=== PATIENT | female | born 1985 | race Caucasian/White ===

== ENCOUNTER 2018-11-30 23:33 | Emergency (ER) | payer OTHER ==
[~2018-11-30] VITALS: Ht 157.5 cm; Wt 98.0 kg
[2018-11-30 23:44] VITALS: Ht 157.5 cm; Wt 98.0 kg
[2018-12-01 00:55] VITALS: BP 131/66
== END 2018-12-01 00:55 | disposition home or self-care (01) ==
LOC: ED 23:33
DX: J18.9 Pneumonia, unspecified organism (principal); J45.909 Unspecified asthma, uncomplicated; E05.90 Thyrotoxicosis, unspecified without thyrotoxic crisis or storm; F41.9 Anxiety disorder, unspecified
CPT/HCPCS: J2930; J7620

== ENCOUNTER 2019-07-09 11:01 | Inpatient (IN) | payer OTHER ==
[~2019-07-09] VITALS: Ht 157.5 cm; Wt 97.3 kg
[2019-07-09 11:16] VITALS: Ht 157.5 cm; Wt 97.3 kg
--- NOTE | 2019-07-09 11:40 | NUR ---
PT CAME TO THE ED TODAY WITH CO RLQ PAIN SINCE YESTERDAY. PT DENIES ANY N/V/D. PT STATES YESTERDAY IT WAS HER ENTIRE ABD AND TODAY IS JUST RLQ. PT STATES PAIN FEELS LIKE ITS TWISTING AND IS 7/10. PT STATES " CAN YOU CHECK FOR STD'S BECAUSE I HAVE BEEN HAVING UNPROTECTED SEX." PT IS AWAKE AND ALERT. DENIES ANY URINARY SYMPTOMS. PT SITTING ON GURNEY WITH NAD. WILL CONTINUE TOMONITOR.
[2019-07-09 12:03] LABS: CALCIUM 8.3 mg/dL (8.5-10.1); CHLORIDE SERUM 103 mmol/L (98-107); CREATININE SERUM 0.9 mg/dL (0.6-1.0); GFR1 > 60 mL/min; GLUCOSE SERUM 115 mg/dL (74-106); POTASSIUM SERUM 3.7 mmol/L (3.5-5.1); SODIUM SERUM 138 mmol/L (136-145)
[2019-07-09 12:14] LABS: PLATELET COUNT 272 x10^3mcL (130-400)
[2019-07-09 12:17] LABS: ALKALINE PHOSPHATASE 65 U/L (46-116); ALT/SGPT 25 U/L (14-59); AST/SGOT 12 U/L (15-37); BILIRUBIN TOTAL 0.7 mg/dL (0.20-1.00); TOTAL PROTEIN, SERUM 7.6 g/dL (6.4-8.2)
[2019-07-09 12:20] LABS: RED CELL DISTRIBUTION WIDTH 19.1 % (11.5-14.5)
[2019-07-09 12:37] LABS: UA SPECIFIC GRAVITY 1.015 (1.005-1.035); microscopic required? YES; urine erythrocyte NEGATIVE (NEGATIVE)
[2019-07-09] MEDS ORDERED: LEVOTHYROXIN0.025 M2 PO (13:02)
[2019-07-09] MEDS ORDERED: LEXAPRO10 MG PO (13:02)
[2019-07-09 13:06] LABS: BAND NEUTROPHIL 20 % (0-10); BASOPHIL 0 % (0-2); MONOCYTE 4 % (0-7); SEGMENTED NEUTROPHILS 67 % (37-75)
[2019-07-09 13:08] LABS: rbc morphology (normal/abnorm) NORMAL (NORMAL)
[2019-07-09 13:36] LABS: AMPHETAMINE QUAL UR NONE DETECTED (See below)
--- NOTE | 2019-07-09 13:43 | NUR ---
REPORT GIVEN TO DIXIE GOLDMAN ON MS FOR FURTHER CARE OF PT AFTER SURGERY
[2019-07-09 16:16] VITALS: BP 114/63
--- NOTE | 2019-07-09 16:26 | NUR ---
RECEIVED FROM PACU, TRANSPORTED VIA [facility]. S/P LAPARASCOPIC APPENDECTOMY WITH SMALL SURGICAL SUTURE SITES COVERED WITH DERMABOND X 3 SITES TO ABDOMEN. HYPOACTIVE BOWEL SOUNDS. STATED HAVING 7/10 SHARP PAIN TO SURGICAL SITE. ABLE TO TRANSFER FROM [facility] TO BED BY SELF. BREATHING EVEN AND UNLABORED ON 2LPM OF O2 VIA NC. LUNG SOUNDS CLEAR. SALINE LOCK TO RIGHT FOREARM, INTACT. SCDS TO BLE. HOB ELEVATED 30 DEG. INSTRUCTED ON USE OF CALL LIGHT TO CALL FOR ASSISTANCE, PLACED WITHIN EASY REACH. ENDORSED TO NURSE CABRERA
--- NOTE | 2019-07-09 16:34 | NUR ---
PATIENT ADMITTED FROM SURGERY, BROUGHT UP BY [facility] ACCOMPANIED BY 2 STAFF MEMBERS. PATIENT ABLE TO TRANSFER TO BED FROM [facility]. A/O X4, SOMULENT, S/P LAP APPY. PATIENT COMPLAINING OF PAIN TO RIGHT LOWER ABD WHEN TRANSFERING, BUT WISHING TO REST AT THIS TIME. CURRENTLY ON 2LPM NC FROM POST OP. M/S PATIENT. LUNG SOUNDS CTA, BOWEL SOUNDS HYPOACTIVE. CURRENTLY NPO. X3 INCISION TO ABD SUTURES AND DERMABOND. STARTED NS TO RIGHT FOREARM AT 100MLS/H. PATIENT SLIGHTLY WARM TO TOUCH, TEMP 99.2 TE. WILL CONTINUE TO MONITOR. CALL LIGHT PLACED WITHIN REACH, FAMILY MEMBER AR BEDSIDE
[2019-07-09 20:00] VITALS: BP 97/55
--- NOTE | 2019-07-09 20:00 | NUR ---
PATIENT RECEIVED IN BED EARLIER DURING BEDSIDE HANDS OFF SLEEPING EASILY AWAKEN WHEN NAME CALLED, APPEARED DROWSY BUT AROUSABLE VERBALLY, TO BE ABLE TO RESPOND AND ANSWER QUESTIONS APPROPRIATELY, SPEECH CLEAR. , S/SP LAP/APPY TODAY, X3 ABDOMINAL SURGICAL INCISION DERMABOND, NO BLEEDING AT SITE, COMPLAINED OF PAIN AND WILL MEDICATE PRN, ABDOMEN TENDER TO [facility], HYPOACTIVE BS, DENIED PASSING GAS NOR BURPING.NO URGE TO VOID YET INFORMED TO CALL NURSE WHEN NECESSITIES CALLS, BLADDER NON DISTENDED. IV SITE NO SIGN OF INFILTRATION. APPLIED SCD'S TO BLE AND INFORMED ABOUT ITS PURPOSE AND IMPORTANCE BEING FOR DVT PROPHYLAXIS. SAFETY PRECAUTIONS MAINTAINED. PATIENT INFORMED ABOUT PAIN MANAGEMENT. WILL CONTINUE TO MONITOR.
--- NOTE | 2019-07-09 20:59 | NUR ---
PATIENT COMPLAINED OF POSTSURGICAL INCISIONAL ABDOMINAL PAIN, MEDICATED PRN, MADE CCOJMFORTABL IN BED.. WILL CHECK EFFECTIVENESS.
--- NOTE | 2019-07-09 21:52 | NUR ---
CHECKED EFFECTIVENESS OF PAIN MEDS GIVEN ,PATIENT STATED PAIN IS SLWOLY SUBSIDING. COMFORTABLE THIS TIME. WILL CONTINUE TO MONITOR.
--- NOTE | 2019-07-09 23:00 | NUR ---
PATIENT WAS ASSISTED OOB TO THE BATHROOPM TO VOID, SLOW STEADY GAIT, VOIDED ARIK UA. ASSISTED BACK IN BED.
--- NOTE | 2019-07-10 00:49 | NUR ---
CALLED AND COMPLAINED OF ABDOMINAL SURGICAL INCISIONAL PAIN, RATED ATB 7/10, MEDICATED PRN, MADE COMFORTABLE IN BED. WILL MONITOR. EFFECTIVENESS.
--- NOTE | 2019-07-10 01:45 | NUR ---
PATIENT CHECKED THIS TIME, SLEEPING BUT EASILY AWAKEN VERBALLY,CLAIMED PAIN IS BETTER AT 2/10. WILL CONTINUE TO MONITOR.
--- NOTE | 2019-07-10 05:24 | NUR ---
COMPLAINED OF ABDOMINAL SURGICAL INCISION PAIN RATED AT 7/10, MEDICATED PRN AND MADE COMFORTABLE IN BED. WILL CHECK EFFECTIVENESS.
[2019-07-10 05:41] VITALS: BP 93/50
--- NOTE | 2019-07-10 06:15 | NUR ---
PATIENT HAD A RESTFUL AND QUIET NIGHT, WAS MEDICATED PRN FOR COMPLAINT OF PAIN. PATIENT VOIDED WITHOUT DIFF. AMBULATED TO THE BR WITH STEADY GAIT. DENIED PASSING GAS NOR BURPING. ENCOURAGED TO INCREASE AMBULATION TODAY TOLERATED TO HELP EXPELL GAS. INCISION SITES NO BLEEDING. SAFETY PRECAUTIONS MAINTAINED. WILL ENDORSE CONTINUITY OF CARE TO INCOMING NURSE.
[2019-07-10 06:37] VITALS: BP 102/64
--- NOTE | 2019-07-10 06:38 | NUR ---
PATIENT SEEN AMBULATING IN THE HALLWAY.
[2019-07-10 06:39] LABS: BASOPHIL % 0.1 % (0-2); PLATELET COUNT 230 x10^3mcL (130-400)
--- NOTE | 2019-07-10 06:45 | NUR ---
PT REPORTS SOME RELIEF AFTER MED ADMINISTRATION. WILL CONT TO MONITOR.
[2019-07-10 06:50] LABS: RED CELL DISTRIBUTION WIDTH 19.2 % (11.5-14.5)
--- NOTE | 2019-07-10 06:50 | NUR ---
PATIENT CONTINUED TO AMBULATE IN THE HALLWAY, CLAIMED SHE BURPED ALREADY BUT NO GAS. WILL REPORT TO AM NURSE.
[2019-07-10 06:54] LABS: CARBON DIOXIDE 24.8 mmol/L (21-32); CHLORIDE SERUM 104 mmol/L (98-107); CREATININE SERUM 0.8 mg/dL (0.6-1.0); GFR1 > 60 mL/min; GLUCOSE SERUM 120 mg/dL (74-106); MAGNESIUM 1.7 mg/dL (1.8-2.4); PHOSPHOROUS 3.1 mg/dL (2.5-4.9); POTASSIUM SERUM 3.9 mmol/L (3.5-5.1); SODIUM SERUM 138 mmol/L (136-145)
--- NOTE | 2019-07-10 07:20 | NUR ---
RECEIVED PT FROM [employer]UDIES TUTOR. PT AWAKE, ALERT A/OX4. PT ON ROOM AIR WITH NO RESP DISTRESS NOTED. IV ACCESS RFA, CDI INFUSING NS AT 80ML/HR. PERIPHERAL PULSES PALPABLE, NO EDEMA NOTED. PT REFUSES SCD'S. PT AMBULATORY WITH GENERALIZED WEAKNESS NOTED. PT REPORTS +BURP, -GAS, ACTIVE BS NOTED. PT HAS 3 SURGICAL INCISIONS WITH DERMABOND, NO DRAINAGE NOTED. PT REPORTS ABDOMINAL PAIN, WILL MEDICATE PRN. SAFETY MEASURES IN PLACE, BED LOW AND LOCKED. CALL LIGHT WITHIN REACH.
--- NOTE | 2019-07-10 07:26 | NUR ---
BEDSIDE REPORT AND INTRODUCTION PERFORMED WITH INCOMING NURSE MADDISON.
[2019-07-10 07:37] VITALS: BP 90/45
--- NOTE | 2019-07-10 10:41 | NUR ---
PT COMPLAINING OF PAIN TO ABDOMEN ASKING FOR PAIN MED. NORCO ADMINISTERED ORDERED PRN (SEE EMAR). WILL MONITOR.
--- NOTE | 2019-07-10 12:00 | NUR ---
PT REPORTS SOME RELIEF AFTER ADMINISTRATION OF NORCO. PT REFUSES SCD'S, PT ABLE TO AMBULATE WITH NO ISSUES. PT STEADY ON FEET. WILL CONTINUE TO MONITOR.
--- NOTE | 2019-07-10 15:34 | NUR ---
PT REQUESTING PAIN MED FOR PAIN IN ABDOMEN 03/19 AND PAIN IN NECK 01/17. MED ADMINISTERED ORDERED PRN (SEE EMAR). WILL CONTINUE TO MONITOR. SAFETY MAINTAINED.
[2019-07-10 16:31] VITALS: BP 103/55
--- NOTE | 2019-07-10 19:01 | NUR ---
PT STABLE AT THIS TIME. WILL CONTINUE TO MONITOR AND ENDORSE CARE TO [employer]RIC[employer] ADVISORY TEACHER. SAFETY MAINTAINED.
[2019-07-10 19:50] VITALS: BP 107/54
--- NOTE | 2019-07-10 19:50 | NUR ---
BEDSIDE HANDS OFF RECEIVED FROM OUT GOING NURSE MADDISON PATIENT APPEARED COMFORTABLE, COMPLAINED OF POST SURGICAL ABDDOMINAL INCISIONAL PAIN RATED AT 5/10 WILL MONITOR AND CHECK PRN MEDS IF DUE, IV SITE NO SIGN OF INFILTRATION. PASSED GAS AND BURP PER AM NURSE, X3 ABDOMINAL INCISION DERMABOND, SITES NO BLEEDING. PATIENT INFORMED ABOUT POC THIS SHIFT. WILL CONTINUE TO MONITOR.
--- NOTE | 2019-07-10 20:25 | NUR ---
COMPLAINED OF ABDOMINAL SURGICAL INCISIONAL PAIN RATED AT 7-8/10 MEDICATED PRN, PATIENT ALSO WITH TEMP 100.0. COOLING MEASURES INITIATED, REMOVED EXCESS BLANKET AND APPLIED ICE PACK TO AXILLA AND FOREHEAD. WILL CHECK EFFECTIVENESS.
--- NOTE | 2019-07-10 21:49 | NUR ---
DR ELLIS MADE AWARE OF REJQ=453.7 ORALLY, PATIENT ENCOURAGED FLUIDS AND KEPT EXCESS BLANKET OFF AND COOLING MEASURES MAINTAINED. TYLENOL 650 MG GIVEN. WILL CONTINUE TO MONITOR/
--- NOTE | 2019-07-10 21:53 | NUR ---
MEDICATED WITH TYLENOL 650 MG PO FOR ELEVATED TEMP, COOLING MEASURES MAINTAINED.
--- NOTE | 2019-07-10 22:36 | NUR ---
PT C/O OF 04/18 PAIN STILL AFTER ADMINISTRATION OF NORCO. ADMINISTERED MORPHINE PER DEC. WILL REASSESS AND CONTINUE TO MONITOR.
--- NOTE | 2019-07-10 22:53 | NUR ---
RE-CHECKED TEMP DOWN THIS TIME, COMPLAINED OF SORE THROAT AND COUGHING PHEOLGM YELLOW PER PATIENT,WILL NOTIF DR ELLIS.
--- NOTE | 2019-07-10 22:58 | NUR ---
DR ELLIS INFORMED OF PATIENT COMPLAINT OF SORE THROAT AND COUGHING YELLOW PHLEGM.
--- NOTE | 2019-07-11 01:07 | NUR ---
INQUIRE FROM PATIENT IF DR ELLIS CAME TO SEE HER REGARDING COMPLAINT MADE EARLIER OF HER SORE THROAT, PATIENT STATED MD CAME.
--- NOTE | 2019-07-11 01:51 | NUR ---
PT IS ASLEEP BUT AROUSABLE WHEN SPOKEN TO. BREATHING IS EVEN AND UNLABORED. NO SIGNS OF RESP. DISTRESS. BED IN LOWEST POSTION. CALL LIGHT WITHIN REACH. WILL CONTINUE TO MONITOR.
--- NOTE | 2019-07-11 03:40 | NUR ---
PATIENT IS RETING COMFORTABLY THIS TIME NO DISTRESS. WILL CONTINUE TO MONITOR.
[2019-07-11 05:07] LABS: RAPID PLASMA REAGIN Non Reactive (Non Reactive)
[2019-07-11 05:48] VITALS: BP 125/67
[2019-07-11 06:12] LABS: BASOPHIL % 0.2 % (0-2); PLATELET COUNT 252 x10^3mcL (130-400)
[2019-07-11 06:24] LABS: CALCIUM 7.7 mg/dL (8.5-10.1); CARBON DIOXIDE 24.4 mmol/L (21-32); CHLORIDE SERUM 103 mmol/L (98-107); CREATININE SERUM 0.6 mg/dL (0.6-1.0); GFR1 > 60 mL/min; GLUCOSE SERUM 110 mg/dL (74-106); MAGNESIUM 1.7 mg/dL (1.8-2.4); PHOSPHOROUS 2.6 mg/dL (2.5-4.9); POTASSIUM SERUM 3.5 mmol/L (3.5-5.1); SODIUM SERUM 136 mmol/L (136-145)
[2019-07-11 06:55] LABS: RED CELL DISTRIBUTION WIDTH 19.4 % (11.5-14.5)
--- NOTE | 2019-07-11 07:10 | NUR ---
RECEIVED BEDSIDE REPORT FROM DIRECTOR HOUSEKEEPING NURSE AT THIS TIME. PATIENT RESTING COMFORTABLY IN BED. NO APPARENT DISTRESS OR DISCOMFORT NOTED. BREATHING EVEN AND UNLABORED. NO RESPIRATORY DISTRESS OR DISCOMFORT. PATIENT DENIES SHORTNESS OF BREATH. PATIENT DENIES CHEST PAIN/PRESSURE AT THIS TIME. S/P LAP APPY WITH X3 INCISION WITH DERMABOND, CDI. IV PATENT AND INTACT. ALL QUESTIONS AND CONCERNS ADDRESSED. ALL NEEDS ATTENDED TO. WILL CONTINUE TO MONITOR
--- NOTE | 2019-07-11 07:26 | NUR ---
PT SLEPT IN INTERVALS THROUGHOUT SHIFT WITH NO ACUTE EVENTS OVERNIGHT. COMFORT AND SAFETY MEASURES MAINTAINED. ALL NEEDS ASSESSED AND ATTENDED TO. ENDORSED CARE TO DAY SHIFT NURSE, OLI GOLDMAN.
[2019-07-11 09:20] VITALS: BP 113/68
--- NOTE | 2019-07-11 09:50 | NUR ---
PATIENT DOWN FOR CT SCAN AT THIS TIME.
--- NOTE | 2019-07-11 10:00 | NUR ---
ALL MORNING MEDICATION ADMINISTERED. PATIENT TOLERATED MEDICATIONS WELL. NO APPARENT ADVERSE EFFECTS NOTED. ALL NEEDS ATTENDED TO. WILL CONTINUE TO MONITOR
--- NOTE | 2019-07-11 10:15 | NUR ---
PATIENT BACK FROM CT SCAN. ALL NEEDS ATTENDED TO. WILL CONTINUE TO MONITOR
--- NOTE | 2019-07-11 12:52 | NUR ---
PATIENT SITTING UP IN BED EATING LUNCH AT THIS TIME. PATIENT TOLERATING DIET WELL. NO APPARENT DISTRESS OR DISCOMFORT. ALL NEEDS ATTENDED TO. WILL CONTINUE TO MONITOR
--- NOTE | 2019-07-11 17:06 | NUR ---
PATIENT C/O 5/10 ABD PAIN AT THIS TIME. PATIENT MEDICATED WITH NORCO PO PRN. PATIENT TOLERATED MEDICATION WELL. NO APPARENT ADVERSE EFFECTS. ALL NEEDS ATTENDED TO. WILL CONTINUE TO MONITOR
--- NOTE | 2019-07-11 17:15 | NUR ---
REPORT TO DR GARZA AT THIS TIME MAG 1.7. PER DR GARZA NO NEED TO REPLACE 0.1. ALL QUESTIONS AND CONCERNS ADDRESSED. ALL NEEDS ATTENDED TO. WILL CONTINUE TO MONITOR
[2019-07-11 17:37] VITALS: BP 123/78
--- NOTE | 2019-07-11 18:27 | NUR ---
PATIENT RESTING COMFORTABLY IN BED AT THIS TIME. NO APPARENT DISTRESS OR DISCOMFORT NOTED. PATIENT IV PATENT AND INTACT. ALL QUESTIONS AND CONCERNS ADDRESSED. ALL NEEDS ATTENDED TO. SAFETRY PRECAUTIONS MAINTIANED. WILL ENDORSE ALL CARE TO CHILD PROTECTIVE SERVICES SOCIAL WORKER NURSE
[2019-07-11 20:55] VITALS: BP 128/80
--- NOTE | 2019-07-11 21:07 | NUR ---
Pt. received from day shift, resting in bed comfortably, no signs of pain, no discomfort or SOB. pt. s/p lap appy on 07/09, came in complaining of RLQ abdominal pain, diagnosed w/ acute appendicitis, on regular diet, and has allergies to PCN and codeine. Pt. a/o x4, med surg, (+)pulses, no signs of edema, on SCDs, lungs CTA and on RA w/ chest xray (-), BM noted on 07/09 and has passed gas and burped, Pt. ambulatory with generalized weakness noted but ambulates and voids well. Pt. has abdominal incisions x3 and covered w/ dermabond. Pt. IV patent and intact w/ NS running at 40 cc/hr on her LFA and is on rocephin. Pt. call light placed within, bed set at lowest position, will continue to monitor.
--- NOTE | 2019-07-12 02:14 | NUR ---
Pt. c/o of feeling sore all throughout her body and could not sleep. Offered pt. tylenol, and pt. said yes to the medicine. Pt. reassessed and is asleep in bed, no signs of sob, restlessness, or pain. Will continue to monitor pt.
[2019-07-12 05:36] VITALS: BP 113/70
[2019-07-12 06:11] LABS: BASOPHIL % 0.1 % (0-2); PLATELET COUNT 288 x10^3mcL (130-400)
--- NOTE | 2019-07-12 06:16 | NUR ---
Pt. currently resting in bed, no signs of acute distress, pain. Pt. was unable to sleep straight through the night, ambulated through the hallway once, and stated she went to the bathroom 3 to 4 times tonight. Pt. needs have been met. Pt. requests to shower, message has been forwarded to the MD, waiting on reply. Informed pt. that MD has been made aware, waiting on order to be placed. Will follow up in the AM. Pt. was feeling sore and uncomfortable in bed, gave pt. 2 tylenol, pt was asleep for at least 1 - 2 hours. Safety precautions have been set in place: call light placed within reach, bed set at lowest position, will continue to monitor.
[2019-07-12 06:22] LABS: CALCIUM 8.2 mg/dL (8.5-10.1); CARBON DIOXIDE 26.4 mmol/L (21-32); CHLORIDE SERUM 105 mmol/L (98-107); CREATININE SERUM 0.5 mg/dL (0.6-1.0); GFR1 > 60 mL/min; GLUCOSE SERUM 108 mg/dL (74-106); MAGNESIUM 1.9 mg/dL (1.8-2.4); PHOSPHOROUS 2.9 mg/dL (2.5-4.9); POTASSIUM SERUM 3.5 mmol/L (3.5-5.1); SODIUM SERUM 139 mmol/L (136-145)
[2019-07-12 06:37] LABS: RED CELL DISTRIBUTION WIDTH 19.7 % (11.5-14.5)
--- NOTE | 2019-07-12 07:15 | NUR ---
RECEIVED PT. IN BED A/A/O X4. NO SOB, NO N/V NOTED. PT. DENIES ANY PAIN AT THIS TIME. NS RUNNING AT 40 CC/HR VIA SITE AT L FA. SCD TO BLE MAINTAINED. BED IN LOW POS., CALL LIGHT WITHIN REACH. SIDE RAILS UP X3.
--- NOTE | 2019-07-12 07:27 | NUR ---
ENDORSED ALL CARE TO DAYSHIFT NURSE, NO ACUTE DISTRESS NOTED. ALL QUESTIONS AND CONCERNS ADDRESSED, ALL COMFORT AND SAFETY MEASURES PROVIDED FOR, CALL LIGHT WTIHIN REACH, BED IN LOWEST POSITION.
[2019-07-12 08:48] VITALS: BP 97/52
[2019-07-12] MEDS ORDERED: AUG500 PO (09:26)
[2019-07-12] MEDS ORDERED: TRAMADOL HCL50 MG PO (09:27)
[2019-07-12] MEDS ORDERED: NORCO1 TA2 PO (09:41)
[2019-07-12 10:41] LABS: rbc morphology (normal/abnorm) ABNORMAL (NORMAL)
[2019-07-12 11:45] VITALS: BP 108/63
--- NOTE | 2019-07-12 12:00 | NUR ---
D/C HOME INSTRUCTIONS GIVEN TO PT. WHO VERBALIZED UNDERSTANDING OF INSTRUCTIONS. IV H/L TO L FA REMOVED. PHOTOGRAPH OF ABD. INCISIONS TAKEN PRIOR TO DISCHARGE.
--- NOTE | 2019-07-12 12:27 | NUR ---
PT. IS BEING DISCHARGED IN STABLE CONDITION VIA WHEELCHAIR. ALL BELONGINGS SENT HOME WITH PT. UPON DISCHARGE.
== END 2019-07-12 12:28 | disposition home or self-care (01) | DRG 854 ==
LOC: ED 11:01 → MU 12:54
PROVIDERS: Emergency Medicine; Internal Medicine; Surgery; ADMIT General Practice
PROC: 0DTJ4ZZ Resection of Appendix, Percutaneous Endoscopic Approach (ICD-10-PCS; principal; 2019-07-09 14:00)
DX: A41.9 Sepsis, unspecified organism (principal); K35.80 Unspecified acute appendicitis; E03.9 Hypothyroidism, unspecified; J45.909 Unspecified asthma, uncomplicated; D50.9 Iron deficiency anemia, unspecified; F41.9 Anxiety disorder, unspecified; Z68.38 Body mass index [BMI] 38.0-38.9, adult
CPT/HCPCS: 87491; 87591; G0378; J0330; J0696; J1170; J2270; J2405; J2704; J2710; J3010; J3490; J7030; J7060; J7120; Q0092

== ENCOUNTER 2019-11-24 23:42 | Emergency (ER) | payer OTHER ==
[~2019-11-24] VITALS: Ht 157.5 cm; Wt 93.4 kg
[~2019-11-24 23:42] MED LIST: AUG500 PO; LEVOTHYROXIN0.025 M2 PO; LEXAPRO10 MG PO; NORCO1 TA2 PO; TRAMADOL HCL50 MG PO
[2019-11-24 23:47] VITALS: Ht 157.5 cm; Wt 93.4 kg
[2019-11-25 02:16] VITALS: BP 125/63
== END 2019-11-25 02:16 | disposition home or self-care (01) ==
LOC: ED 23:42
DX: K59.00 Constipation, unspecified (principal); R09.89 Other specified symptoms and signs involving the circulatory and respiratory systems; R05 Cough; J45.909 Unspecified asthma, uncomplicated; E05.90 Thyrotoxicosis, unspecified without thyrotoxic crisis or storm; Z98.890 Other specified postprocedural states; Z88.0 Allergy status to penicillin; Z88.5 Allergy status to narcotic agent
CPT/HCPCS: J1885